=== PATIENT | female | born 1990 | race Caucasian/White ===

== ENCOUNTER 2022-04-03 10:57 | Observation (INO) | payer OTHER, SELFPAY ==
[2022-04-03] VITALS (8 sets, daily range): BP systolic 103–132; BP diastolic 67–86; PULSE 79–97; RESP 18–22; TEMP 36.7–37.1; O2SAT 96–100; BMI 25.8; BMI 25.5
--- NOTE | 2022-04-03 11:36 | CRLHL7_ITS ---
For Patients: As a result of the Century Cures Act, medical imaging exams and procedure reports are released immediately into your electronic medical record. You may view this report before your referring provider. If you have questions, please contact your health care provider. INDICATION: Questioning peritonsillar abscess. TECHNIQUE: CT images acquired through the neck following intravenous contrast. COMPARISON: None. FINDINGS: Asymmetric enlargement of the right palatine tonsil. Peripherally enhancing lesion in the right peritonsillar region measuring 9 x 12 x 4 mm (AP/CC/TR), compatible with abscess. Stranding within the right parapharyngeal space and mild narrowing of the oropharyngeal airway. No thickening of the epiglottis or retropharyngeal edema. Edema within the inferior right pharyngeal mucosal space contributing to mild asymmetric effacement of the right vallecula. Enlarged right level IIa lymph node measuring 19 mm, as well as borderline enlarged bilateral level IIb lymph nodes, likely reactive The hypopharynx and larynx are widely patent. The parotid and submandibular glands unremarkable. No enhancing lesions in the oral cavity or floor of mouth. The thyroid gland is unremarkable. Limited images through the brain are without pathologic intracranial enhancement. Moderate mucosal thickening right sphenoid sinus. The mastoid air cells are clear. No aggressive osseous lesions. The visualized lungs are clear. IMPRESSION: 1. Peripherally enhancing 1.2 cm right peritonsillar abscess associated with inflammatory stranding in the right parapharyngeal space. There is mild narrowing of the oropharyngeal airway. 2. Enlarged right level IIa and borderline enlarged bilateral level IIb lymph nodes, likely reactive. Please note that all CT scans at this facility use dose modulation, iterative reconstruction, and/or weight-based dosing when appropriate to reduce radiation dose to as low as reasonably achievable. Dictated by Lc Selby MD @ 04/03/2022 1:14:26 PM (Electronically Signed)
--- NOTE | 2022-04-03 11:37 | ED_ITS ---
HPI - General Adult General Chief complaint: Ear/Nose/Throat Problem Stated complaint: Peritonsillar abscess Time Seen by Provider: 04/03/22 11:32 Source: patient Mode of arrival: ambulatory Limitations: no limitations History of Present Illness HPI narrative: 31-year-old female coming in today complaining of sore throat that started yesterday. She is having difficulty swallowing secondary to discomfort. She d enies any fevers or chills. No nausea or vomiting. She denies any drooling. States that sometimes feels uncomfortable to open her mouth wide. She states that the pain radiates down the right side of the neck. No difficulty breathing. She did have a cough last week that is gotten better. Related Data Home Medications Medication Instructions Recorded Confirmed No Known Home Medications 04/03/22 04/03/22 Allergies Allergy/AdvReac Type Severity Reaction Status Date / Time Penicillins Allergy Verified 04/03/22 11:12 Review of Systems Status of ROS: Reports: 10 or more systems reviewed and unremarkable except as noted in History and below PFSH [facility] Medical History Anxiety Depression Herpes zoster with meningitis (04/2018) History of irregular menstrual cycles Surgical History History of lumbar laminectomy (2008) History of third molar tooth extraction Family History Maternal Grandfather Colon cancer High cholesterol Alzheimers disease Heart disease Father High cholesterol Social History Narrative: Smoking Status: Never smoker Do you use any of these nicotine containing products: None Second hand tobacco smoke exposure: No How often do you have a drink containing alcohol: never How often do you have six or more drinks on one occasion: Never AUDIT-C Alcohol total score: 0 Non-prescribed substance use: denies use service: No Exam Narrative: Exam Narrative: Well-nourished well-developed patient in no acute distress. Alert and oriented. Answers questions appropriately. Mood and affect are appropriate. Thoughts are goal oriented and rational. No tangential or magical thinking noted. Patient speaks in full sentences without needing to catch their breath. Her voice does sound congested. HEENT: Normocephalic atraumatic. Pupils are equally round reactive to light. Extraocular muscles are intact. Conjunctivae are moist without any icterus noted. Moist mucous membranes. Posterior pharynx Shows right tonsillar swelling, erythema of the soft palate and swelling of the soft palate. The right soft palate is protruding forward when compared to the left side. Neck is soft without any lymphadenopathy or thyromegaly. No masses are appreciated. Cardiovascular: Heart is regular rate and rhythm S1 and S2 are present without any murmurs. Lungs: Clear to auscultation bilaterally no wheezes rhonchi or rales are appreciated. Patient takes deep breaths without any discomfort. Skin: Well perfused without any obvious rashes. Const: Vital Signs, click to edit/add: Vital Signs - 24 hr 04/03/22 11:12 04/03/22 13:11 04/03/22 16:12 Temperature 98.8 F Pulse Rate [Pulse Oximeter] 97 79 97 Respiratory Rate 22 20 20 Blood Pressure [Ri ght Upper Arm] 132/86 110/80 129/81 Pulse Oximetry 100 100 97 Oxygen Delivery Me thod Room Air Room Air Room Air Course Course Hospital Course: Given the concern for a peritonsillar abscess, soft tissue CT of the neck was done. This did show a 1.2 cm peritonsillar abscess. I did consult with Dr. Waggoner who recommended admission and IV antibiotics. IV was established an IV clindamycin was started in the ER, along with a dose of Decadron. Vital Signs Vital signs: Initial Vital Signs Temperature 98.8 F 04/03/22 11:12 Temperature Source Temporal Artery Scan 04/03/22 11:12 Pulse Rate 97 04/03/22 11:12 Pulse Rhythm 04/03/22 11:12 Respiratory Rate 22 04/03/22 11:12 Blood Pressure 132/86 04/03/22 11:12 Blood Pressure Mean 101 04/03/22 11:12 Blood Pressure Position Supine 04/03/22 11:12 Pulse Oximetry 100 04/03/22 11:12 Oxygen Delivery Method 04/03/22 11:12 Vital Signs Temperature 98.8 F 04/03/22 11:12 Pulse Rate 97 04/03/22 11:12 Respiratory Rate 22 04/03/22 11:12 Blood Pressure 132/86 04/03/22 11:12 Pulse Oximetry 100 04/03/22 11:12 Oxygen Delivery Method 04/03/22 11:12 Temperature 98.8 F 04/03/22 11:12 Pulse Rate 97 04/03/22 16:12 Respiratory Rate 20 04/03/22 16:12 Blood Pressure 129/81 04/03/22 16:12 Pulse Oximetry 97 04/03/22 16:12 Oxygen Delivery Method 04/03/22 16:12 Medical Decision Making MDM Narrative Medical decision making narrative: 31-year-old female peritonsillar abscess. Patient will be admitted for management. Lab Data Lab results reviewed: Yes I reviewed the patient's lab results Labs: Lab Results 04/03/22 Range/Units 16:13 SARS-CoV-2 (PCR) Negative SARS-CoV-2 (Negative) Influenza Type A (PCR) Negative PCR FLU A (Negative) Influenza Type B (PCR) Negative PCR FLU B (Negative) Imaging Data CT soft tissue neck: Attestation: I have reviewed the pertinent imaging results. Radiologist's impression: CT images acquired through the neck following intravenous contrast. COMPARISON: None. FINDINGS: Asymmetric enlargement of the right palatine tonsil. Peripherally enhancing lesion in the right peritonsillar region measuring 9 x 12 x 4 mm (AP/CC/TR), compatible with abscess. Stranding within the right parapharyngeal space and mild narrowing of the oropharyngeal airway. No thickening of the epiglottis or retropharyngeal edema. Edema within the inferior right pharyngeal mucosal space contributing to mild asymmetric effacement of the right vallecula. Enlarged right level IIa lymph node measuring 19 mm, as well as borderline enlarged bilateral level IIb lymph nodes, likely reactive The hypopharynx and larynx are widely patent. The parotid and submandibular glands unremarkable. No enhancing lesions in the oral cavity or floor of mouth. The thyroid gland is unremarkable. Limited images through the brain are without pathologic intracranial enhancement. Moderate mucosal thickening right sphenoid sinus. The mastoid air cells are clear. No aggressive osseous lesions. The visualized lungs are clear. IMPRESSION: 1. Peripherally enhancing 1.2 cm right peritonsillar abscess associated with inflammatory stranding in the right parapharyngeal space. There is mild narrowing of the oropharyngeal airway. 2. Enlarged right level IIa and borderline enlarged bilateral level IIb lymph nodes, likely reactive. Discharge Plan Discharge Clinical Impression: Abscess, peritonsillar Patient Disposition: Admitted As Inpatient Condition: Stable Prescriptions: No Action No Known Home Medications Follow Up/Referrals: Loulou Smyth CNP [Primary Care Provider] -
[2022-04-03] MEDS: dexAMETHasone 10 MG/ML inj 8 MG IVP (13:47)
[2022-04-03] MEDS: CLINDAMYCIN PHOSPHATE/D5W 600 MG/50 ML PIGGYBACK IVPB ×2 (13:51→21:39)
[2022-04-03 17:11] LABS: PCR FLU A Negative PCR FLU A (Negative); PCR FLU B Negative PCR FLU B (Negative)
[2022-04-03 17:16] LABS: SARS PCR* Negative SARS-CoV-2 (Negative)
--- NOTE | 2022-04-03 17:36 | ED.NURSE ---
Pt resting on cart. Denies need. Mom at bedside. Mom will go get pt food form outside of the hospital
--- NOTE | 2022-04-03 19:27 | ED.NURSE ---
Report to JIL Funk
--- NOTE | 2022-04-03 20:32 | PM.IMHP1 ---
Hospitalist- H&P: HPI History of Present Illness Time Seen by Provider: 20:00 Date Seen: 04/03/22 Chief complaint: Peritonsillar abscess Narrative: Radha Viveros is a 31 year old female with 2 young children at home who had influenza symptoms last week which included a mild sore throat. The symptoms went away and yesterday on morning, she woke with sharp right-sided tonsillar pain. She was able to eat her meal, but noticed that the pain increased throughout the day to the point where she was having difficulty swallowing to pain by the evening. Today she was in a great deal of distress due to pain in her right tonsil area and right face and neck. She had been trying to use NyQuil at home to just try to get some sleep, but this was not even helping much. Review of Systems Status of ROS: Reports: 10 or more systems reviewed and unremarkable except as noted in History and below [facility] Medical History Anxiety Depression Herpes zoster with meningitis (04/2018) History of irregular menstrual cycles Surgical History History of lumbar laminectomy (2008) History of third molar tooth extraction Family History Maternal Grandfather Colon cancer High cholesterol Alzheimers disease Heart disease Father High cholesterol Social History (Updated 04/03/22 @ 20:34 by Carin Palacios MD) Narrative: . Two young kids, ages 4 and 7. Denies tobacco, EtOH or recreational drugs. 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 Highest level of school completed/degree received: decline to answer Smoking Status: Never smoker Do you use any of these nicotine containing products: None Second hand tobacco smoke exposure: No How often do you have a drink containing alcohol: never How often do you have six or more drinks on one occasion: Never AUDIT-C Alcohol total score: 0 Non-prescribed substance use: denies use Caffeine: Yes (1 cup per day) service: No Meds Home Medications and Allergies Home Medications Medication Instructions Recorded Confirmed Type No Known Home Medications 04/03/22 04/03/22 History Allergies Allergy/AdvReac Type Severity Reaction Status Date / Time Penicillins Allergy Mild Rash Verified 04/03/22 20:40 Exam Narrative: Exam Narrative: General: No acute distress. Awake alert oriented x3. Very developmental writing instructor and animated. Does not appear ill. No difficulty talking or swallowing saliva. HEENT: Normocephalic atraumatic, pupils equally round and reactive to light and accommodation. Oropharynx bilateral tonsillar swelling and erythema, right much greater than left. Mucous membranes are moist. Right posterior cervical lymphadenopathy noted, none on left. No anterior cervical lymphadenopathy. No JVD. Cardiovascular: Regular rate and rhythm. No murmurs, gallops, or rubs. Chest: No increased work of breathing. Clear to auscultation bilaterally. No crackles or wheezes. Abdomen: Bowel sounds present. Soft, nondistended, nontender. No hepatosplenomegaly or masses. Extremities: No edema, no cyanosis or clubbing. Const: Vital Signs, click to edit/add: Vital Signs - 24 hr 04/03/22 11:12 04/03/22 13:11 04/03/22 16:12 Temperature 98.8 F Pulse Rate [Left A pical] Pulse Rate [Pulse Oximeter] 97 79 97 Respiratory Rate 22 20 20 Blood Pressure [Ri ght Arm] Blood Pressure [Ri ght Upper Arm] 132/86 110/80 129/81 Pulse Oximetry 100 100 97 Oxygen Delivery Me thod Room Air Room Air Room Air 04/03/22 19:50 04/03/22 19:50 04/03/22 19:50 Temperature 98.2 F 98.2 F Pulse Rate [Left A pical] 90 Pulse Rate [Pulse Oximeter] 93 Respiratory Rate 18 20 Blood Pressure [Ri ght Arm] 108/74 108/74 Blood Pressure [Ri ght Upper Arm] Pulse Oximetry 96 98 97 Oxygen Delivery Me thod Room Air Room Air Room Air Hospitalist - H&P: Result Labs Labs: Ordering Physician: Kaylie Baez MD Date of Service: 04/03/22 Procedure(s): CT soft tissue neck w con Accession Number(s): [id number] cc: Kaylie Baez MD; Loulou Smyth RETAIL MANAGEMENT KEYHOLDER~ For Patients: As a result of the Cures Act, medical imaging exams and procedure reports are released immediately into your electronic medical record. You may view this report before your referring provider. If you have questions, please contact your health care provider. INDICATION: Questioning peritonsillar abscess. TECHNIQUE: CT images acquired through the neck following intravenous contrast. COMPARISON: None. FINDINGS: Asymmetric enlargement of the right palatine tonsil. Peripherally enhancing lesion in the right peritonsillar region measuring 9 x 12 x 4 mm (AP/CC/TR), compatible with abscess. Stranding within the right parapharyngeal space and mild narrowing of the oropharyngeal airway. No thickening of the epiglottis or retropharyngeal edema. Edema within the inferior right pharyngeal mucosal space contributing to mild asymmetric effacement of the right vallecula. Enlarged right level IIa lymph node measuring 19 mm, as well as borderline enlarged bilateral level IIb lymph nodes, likely reactive The hypopharynx and larynx are widely patent. The parotid and submandibular glands unremarkable. No enhancing lesions in the oral cavity or floor of mouth. The thyroid gland is unremarkable. Limited images through the brain are without pathologic intracranial enhancement. Moderate mucosal thickening right sphenoid sinus. The mastoid air cells are clear. No aggressive osseous lesions. The visualized lungs are clear. IMPRESSION: 1. Peripherally enhancing 1.2 cm right peritonsillar abscess associated with inflammatory stranding in the right parapharyngeal space. There is mild narrowing of the oropharyngeal airway. 2. Enlarged right level IIa and borderline enlarged bilateral level IIb lymph nodes, likely reactive. Please note that all CT scans at this facility use dose modulation, iterative reconstruction, and/or weight-based dosing when appropriate to reduce radiation dose to as low as reasonably achievable. Dictated by Lc Selby MD @ 04/03/2022 1:14:26 PM (Electronically Signed) Assessment and Plan Assessment and plan (1) Abscess, peritonsillar: Status: Acute (2) Pharyngitis: Problem comment: Concerning for a right tonsillar abscess. Status: Acute Plan I have reviewed the CT findings which showed a peritonsillar abscess, reactive lymphadenopathy, and narrowing of the oropharyngeal airway. She received dexamethasone in the emergency department and already feels much better. Admit for observation overnight and IV clindamycin. I will let her drink clear liquid tonight and make her NPO after midnight. If she is still doing well and improving by tomorrow morning, her diet can be advanced and she can be discharged home on oral clindamycin. I have started IV ketorolac as needed for pain.
[2022-04-03] MEDS: 0.9 % SODIUM CHLORIDE 250 ml IV (21:40)
[2022-04-03] MEDS: SODIUM CHLORIDE 0.9 % (FLUSH) 10 ML SYRINGE 5 ML IVF (21:40)
[2022-04-03] MEDS: KETOROLAC 30 MG/ML inj IVP (22:29)
[2022-04-04 03:00] VITALS: BP 98/63; PULSE 80; PULSE 93; RESP 18; TEMP 36.8; O2SAT 97
--- NOTE | 2022-04-04 05:08 | PC.NURSE ---
patient up ad jose daniel, pain well contorlled, see EMAR for meds given. afebrile. NPO since 0000
[2022-04-04] MEDS: SODIUM CHLORIDE 0.9 % (FLUSH) 10 ML SYRINGE 5 ML IVF ×2 (05:16→08:34)
[2022-04-04] MEDS: CLINDAMYCIN PHOSPHATE/D5W 600 MG/50 ML PIGGYBACK IVPB (05:16)
[2022-04-04 07:00] VITALS: BP 102/59; PULSE 72; RESP 16; TEMP 36.9; O2SAT 100
--- NOTE | 2022-04-04 08:03 | P.DS_ITS ---
DS: Providers Provider Date Seen: 04/04/22 Date of admission: 04/03/22 18:59 Primary care physician: [facility] Admitting Clinician: Carin Palacios MD Attending Physician on discharge: Josey Cancino MD Date of Discharge: 04/04/22 DS: Diagnosis Discharge Diagnosis (1) Abscess, peritonsillar: Status: Acute Problem details: - 1.2cm on imaging - treated with Decadron and clindamycin DS: Summary Hospital Course Hospital Course: Previously healthy 31-year-old female, admitted to the hospital for left peritonsillar abscess. Patient received IV Decadron and clindamycin on admission, this morning she feels ?100% better? and is requesting discharge. She has no trismus, no significant pain, is tolerating p.o. intake. Reviewed improved status with Dr. Cordova of ENT, who agrees with discharge home on antibiotics and steroids, close outpatient follow-up. Patient will be sent home on Augmentin (history notes a rash to penicillin when patient was a child - he notably had mononucleosis at the time. She has received penicillin as an adult with no untoward effects). We reviewed close outpatient follow-up and strict return precautions. Status at Discharge Functional status at discharge: independent ambulation Overall status at discharge: patient is back to baseline Time Spent with Patient Time attestation: Total time spent providing and/or coordinating discharge services: Time spent: Greater than 30 minutes Specific discharge activities: Medication reconciliation, prescriptions, care coordination, specialty consultation Exam Narrative: Exam Narrative: GEN: Alert and oriented, speaking normally without laryngitis HEENT: Normal external ears, EOMIs bilaterally, no scleral icterus. Posterior oropharynx is patent, mild erythema and edema of left tonsil noted. No trismus, patient managing secretions appropriately. Full range of motion of neck noted. CV: RRR, No concerning murmurs, rubs, or gallops R: LCTA bilaterally without concerning wheezing, rales, or rhonchi Ext: wwp, no concerning edema Skin: No concerning skin lesions or rashes on exposed skin Neuro: Nonfocal Psych: Appropriate Const: Vital Signs, click to edit/add: Vital Signs - 24 hr 04/03/22 11:12 04/03/22 13:11 04/03/22 16:12 Temperature 98.8 F Pulse Rate [Left A pical] Pulse Rate [Pulse Oximeter] 97 79 97 Respiratory Rate 22 20 20 Blood Pressure [Ri ght Arm] Blood Pressure [Ri ght Upper Arm] 132/86 110/80 129/81 Pulse Oximetry 100 100 97 Oxygen Delivery Me thod Room Air Room Air Room Air 04/03/22 19:50 04/03/22 19:50 04/03/22 19:50 Temperature 98.2 F 98.2 F Pulse Rate [Left A pical] 90 Pulse Rate [Pulse Oximeter] 93 Respiratory Rate 18 20 Blood Pressure [Ri ght Arm] 108/74 108/74 Blood Pressure [Ri ght Upper Arm] Pulse Oximetry 96 98 97 Oxygen Delivery Me thod Room Air Room Air Room Air 04/03/22 20:12 04/03/22 19:40 04/03/22 22:34 Temperature 98.2 F 98.1 F Pulse Rate [Left A pical] 83 Pulse Rate [Pulse Oximeter] 97 Respiratory Rate 20 20 Blood Pressure [Ri ght Arm] 103/67 Blood Pressure [Ri ght Upper Arm] 129/81 Pulse Oximetry 98 97 Oxygen Delivery Me thod Room Air 04/03/22 23:00 04/03/22 23:00 04/04/22 03:00 Temperature 98.2 F Pulse Rate [Left A pical] 83 80 Pulse Rate [Pulse Oximeter] 93 93 Respiratory Rate 20 18 Blood Pressure [Ri ght Arm] 98/63 Blood Pressure [Ri ght Upper Arm] Pulse Oximetry 97 97 Oxygen Delivery Me thod Room Air DS: Data Data Completed and Pending Labs on day of discharge: Labs from last 24 hours 04/03/22 16:13 SARS-CoV-2 (PCR) Negative SARS-CoV-2 Influenza Type A (PCR) Negative PCR FLU A Influenza Type B (PCR) Negative PCR FLU B Discharge Plan Discharge Disposition: Home, Self-Care Date of Admission: 04/03/22 18:59 Attending Provider on Discharge: Josey Cancino Primary Care Provider: Loulou Smyth Condition: Stable Anticipated Discharge Date/Time: 04/04/22 10:00 Discharge Medications: New amoxicillin-pot clavulanate [Augmentin] 500-125 mg tablet 1 tab PO TID 10 Days Qty: 30 0RF dexamethasone 4 mg tablet 4 mg PO DAILY 4 Days Qty: 4 0RF No Action No Known Home Medications Discharge Orders: Discharge Order (Routine); Ordered 04/04/22 Ordered By: Josey Cancino Patient Education: Amoxicillin/Clavulanate Potassium (By mouth), Dexamethasone (By mouth), Peritonsillar Abscess (DC) Additional Instructions: Antibiotics (start at lunch), and steroids (start tomorrow morning) at [facility]. Tylenol and Ibuprofen for pain as needed, if you have ANY PAIN with opening your mouth, difficulty swallowing, or return of pain that you had yesterday, you MUST return to ED. Activity Level: Activity as Tolerated and No strenuous activity Discharge Diet: Regular Follow Up Appointments: Misty Webster CNP [Nurse Practitioner] - 04/09/22 11:15 am ([facility]) Forms: [employer] Info Instructions
[2022-04-04 08:21] VITALS: RESP 18; TEMP 36.8
[2022-04-04] MEDS: dexAMETHasone 4 MG/ML VIAL IV (08:34)
--- NOTE | 2022-04-04 09:40 | PC.NURSE ---
Patient eval by Dr. Cancino and myself. VS WNL parameters, afebrile. Pt c/o feeling a bit dehydrated, hospitalist aware and pt advanced from NPO status to regular diet. Pt denies throat pain this am. One dose of IV Dexamethasone 4mg given slow IVP. #18 Left AC discontinued and catheter tip intact. Pt and her mom Kit verbalized understanding of d/c diagnosis, new prescriptions, sx to report urgently to physician. RN encouraged PO fluids. Ambulatory d/c to home @ 0920 am with her mom Kit, personal belongings returned per protocol.
== END 2022-04-04 09:20 | disposition home or self-care (01) ==
LOC: ED 17:40 → MEDSURG 19:00
PROVIDERS: Admitting Provider Family Medicine; Emergency Provider Family Medicine; PCP Nurse Practitioner Family; Visit Provider Family Medicine
DX: J36 Peritonsillar abscess (principal); R07.0 Pain in throat; Z86.61 Personal history of infections of the central nervous system; Z86.19 Personal history of other infectious and parasitic diseases; Z98.890 Other specified postprocedural states
CPT/HCPCS: 70491; 87631; 96374; 96375; 96376; 99284; G0378; J1100; J1885; J7050; Q9967; S0077

== ENCOUNTER 2023-01-20 15:22 | Outpatient (CLI) | payer OTHER, SELFPAY | END 2023-01-20 15:23 | disposition home or self-care (01) | LOC: NFLDREF 15:23 | PROVIDERS: PCP Nurse Practitioner Family; Visit Provider Family Medicine | DX: R53.83 Other fatigue (principal); F32.A Depression, unspecified; F41.9 Anxiety disorder, unspecified | CPT/HCPCS: 84443 ==